=== PATIENT | female | born 1980 | race Caucasian/White ===

== ENCOUNTER 2016-10-20 11:02 | Emergency (ER) | payer OTHER ==
[2016-10-20 11:23] VITALS: BP 97/70; PULSE 88; TEMP 97.7; BMI 27.0
[2016-10-20 11:51] LABS: URINE APPEARANCE CLEAR; URINE BILIRUBIN NEGATIVE (NEGATIVE); URINE COLOR STRAW; URINE GLUCOSE (UA) NEGATIVE (NEGATIVE); URINE KETONE NEGATIVE (NEGATIVE); URINE LEUK ESTERASE NEGATIVE (NEGATIVE); URINE NITRITE NEGATIVE (NEGATIVE); URINE PROTEIN NEGATIVE (NEGATIVE); URINE UROBILINOGEN NEGATIVE E.U./dl (0.2-1.0)
[2016-10-20 11:53] LABS: URINE BLOOD 1+ (NEGATIVE)
[2016-10-20 12:00] LABS: URINE RBC 1 /hpf (0-3)
--- NOTE | 2016-10-20 12:09 | PDOC ---
History of Present Illness - General Chief Complaint: Urinary Problem Stated Complaint: POSSIBLE UTI, BACK PAIN Time Seen by Provider: 10/20/16 11:24 History Source: Patient - History of Present Illness Timing/Duration: reports: getting worse Abdominal Pain Onset Location: reports: flank Past History - Past Medical History Allergies/Adverse Reactions: Allergies Allergy/AdvReac Type Severity Reaction Status Date / Time No Known Allergies Allergy Verified 10/20/16 11:24 Home Medications: Ambulatory Orders Nitrofurantoin Monohyd/M-Cryst [Macrobid -] 100 mg PO BID #14 capsule 10/20/16 Asthma: No Cancer: No Cardiac Disorders: No Diabetes: No HTN: No Seizures: No Thyroid Disease: No - Surgical History Abdominal Surgery: Yes (ECTOPIC) - Immunization History Immunization Up to Date: Yes - Psycho/Social/Smoking Cessation Hx Anxiety: Yes Suicidal Ideation: No Smoking Status: Yes Smoking History: Current some day smoker Years of Tobacco Use: 15 Have you smoked in the past 12 months: Yes Number of Cigarettes Smoked Daily: 1 Cigars Per Day: 0 Information on smoking cessation initiated: No Hx Alcohol Use: No Drug/Substance Use Hx: No Substance Use Type: None Hx Substance Use Treatment: No Review of Systems - Review of Systems Constitutional: No: Chills, Fever ABD/GI: No: Nausea, Vomiting : Yes: Dysuria, Frequency, Flank Pain. No: Discharge, Hematuria *Physical Exam - Vital Signs Last Vital Signs Temp Pulse Resp BP Pulse Ox 97.7 F 88 18 97/70 98 10/20/16 11:05 10/20/16 11:05 10/20/16 11:05 10/20/16 11:05 10/20/16 11:05 - Physical Exam General Appearance: Yes: Appropriately Dressed. No: Apparent Distress HEENT: positive: Normal Voice Neck: positive: Supple Respiratory/Chest: negative: Respiratory Distress Gastrointestinal/Abdominal: positive: Soft. negative: Tender Musculoskeletal: negative: CVA Tenderness Integumentary: positive: Dry, Warm Neurologic: positive: Fully Oriented, Alert, Normal Mood/Affect Medical Decision Making - Medical Decision Making 10/20/16 11:43 35 yo F, no significant medical history, here with dysuria w/ urinary frequency 1 week. At some point, developed left flank pain, and states today while urinating, felt a "pulling pain"to site and now also having some right flank pain as well. No hematuria, vomiting, fever or chills. No vaginal discharge. No h/o renal stone See exam Dysuria w/ flank pain R/o uti, no overt s/o pyelo at this time, possible stone though pt too well appearing and in NAD Exam unremarkable -ua/cx pending 10/20/16 11:45 10/20/16 12:09 10/20/16 12:10 Ua w/ blood only. Will do trial of abx for possible uti. Will hold off on scanning at this time given clinical exam. Pt instructed to return immediately if symptoms worsened because at that time, will need a CT. No old +ucx on file to review past sensitivities *DC/Admit/Observation/Transfer Diagnosis at time of Disposition: Dysuria - Discharge Dispostion Disposition: HOME Condition at time of disposition: Good - Prescriptions Prescriptions: Nitrofurantoin Monohyd/M-Cryst [Macrobid -] 100 mg PO BID #14 capsule - Patient Instructions Printed Discharge Instructions: DI for Dysuria -- Adult Additional Instructions: Please take antibiotics as prescribed and if symptoms such as worsening back pain, vomiting or fever occur, please return immediately for a CAT scan to rule out possibly kidney stone
== END 2016-10-20 12:20 | disposition home or self-care (01) ==
LOC: JERFT 11:02
DX: R30.0 Dysuria (principal); F17.210 Nicotine dependence, cigarettes, uncomplicated
CPT/HCPCS: 81003; 81015; 84703; 87086; 99281-25

== ENCOUNTER 2016-11-08 16:26 | Emergency (ER) | payer OTHER ==
[2016-11-08 16:33] VITALS: BMI 26.4
--- NOTE | 2016-11-08 16:34 | PDOC ---
Rapid Medical Evaluation Chief Complaint: Chest Pain Time Seen by Provider: 11/08/16 16:28 Medical Evaluation: Allergies Allergy/AdvReac Type Severity Reaction Status Date / Time No Known Allergies Allergy Verified 11/08/16 16:28 11/08/16 16:31 I have performed a brief in-person evaluation of this patient. The patient presents with a chief complaint of: lt upper quadrant, lt chest pain x 3 days. aggravating factor worse after exercise. No sob, fever, rash, or nausea Pertinent physical exam findings: vss I have ordered the following: ekg, ua, hcg, cardiac profil, cbc, comp The patient will proceed to the ED for further evaluation.
[2016-11-08 17:15] LABS: BASOPHIL 0.9 % (0-2.0); EOSINOPHIL 0.8 % (0-4.5); MCH 29.2 pg (25.7-33.7); MEAN CELL VOLUME 85.9 fl (80-96); MEAN PLT VOLUME 7.9 fl (7.5-11.1); NEUTROPHILS 65.8 % (42.8-82.8); PLATELET COUNT 198 K/MM3 (134-434); RDW 13.7 % (11.6-15.6); WHITE BLOOD COUNT 6.6 K/mm3 (4.0-10.0)
[2016-11-08 17:40] LABS: ALBUMIN 4.1 g/dl (3.4-5.0); ANION GAP 7 (8-16); BILIRUBIN,TOTAL 0.4 mg/dL (0.2-1.0); CALCIUM 9.1 mg/dL (8.5-10.1); CO2 30 mmol/L (21-32); CREATININE 0.7 mg/dL (0.55-1.02); GLUCOSE,RANDOM 84 mg/dL (74-106); SGOT/AST 23 U/L (15-37); SGPT/ALT 23 U/L (12-78); TOT PROT 7.2 g/dl (6.4-8.2)
[2016-11-08 17:43] LABS: ALK PHOS 64 U/L (45-117); TROPONIN I < 0.02 ng/ml (0.00-0.05)
--- NOTE | 2016-11-08 17:45 | PDOC ---
History of Present Illness - General Chief Complaint: Chest Pain Stated Complaint: BACK PAIN/CHEST PAIN/ABD PAIN Time Seen by Provider: 11/08/16 16:28 History Source: Patient Exam Limitations: No Limitations - History of Present Illness Initial Comments: CHIEF COMPLAINT: 35 y/o afebrile female with no significant PMH c/o abdominal pain and chest pain for the past few days. HISTORY OF PRESENT ILLNESS: the patient admits she always has chest pain and takes a baby aspirin 3 times per week because "she thinks she has angina" although all of her doctors have told her she doesn't. She states for the past few days, especially when she lies down she has squeezing pain in her upper abdomen and middle chest. She also admits to nausea. She denies f/c, v/d, cough, hemoptysis, SOB, back pain, hematuria, dysuria. She is a non smoker, quitting from social smoking a few months ago. She is on non-hormonal [employer] control. She denies recent travel. Vital signs on arrival are within normal limits. REVIEW OF SYSTEMS: GENERAL/CONSTITUTIONAL: No fever/chills. No weakness. No weight change. HEAD, EYES, EARS, NOSE AND THROAT: No change in vision. No ear pain or discharge. No sore throat. CARDIOVASCULAR: +chest pain. No shortness of breath. RESPIRATORY: No cough, wheezing, or hemoptysis. GASTROINTESTINAL: +squeezing abd pain and nausea. No vomiting or diarrhea. GENITOURINARY: No dysuria, frequency, or change in urination. MUSCULOSKELETAL: No joint or muscle swelling or pain. No neck or back pain. SKIN: No rash or easy bruising. NEUROLOGIC: No headache, vertigo, loss of consciousness, or loss of sensation. PHYSICAL EXAM: GENERAL: The patient is awake, alert, and fully oriented, in no acute distress. She is very well appearing, ambulatory, normal weight. HEAD: Normal with no signs of trauma. ENT: Pupils equal, round and reactive to light, extraocular movements intact, sclera anicteric, conjunctiva clear. Neck supple. LUNGS: Clear to auscultation bilaterally. Normal excursion. No respiratory distress or use of accessory muscles. CV: RRR, S1/S2, no MRG. Cap refill < 2 sec. CHEST: No reproducible chest pain with palpation. ABDOMEN: Soft, non-distended, TTP of epigastric region and RUQ. No rebound, guarding or rigidity. Negative Ta's sign. EXTREMITIES: Normal range of motion, no edema. NEUROLOGICAL: Normal speech, normal gait. CN II-XII grossly intact. PSYCH: Normal mood, normal affect. SKIN: Warm, dry, normal turgor, no rashes or lesions noted. Past History - Past Medical History Allergies/Adverse Reactions: Allergies Allergy/AdvReac Type Severity Reaction Status Date / Time No Known Allergies Allergy Verified 11/08/16 16:28 Home Medications: Ambulatory Orders Aspirin [ASA -] 81 mg PO PRN PRN 11/08/16 Asthma: No Cancer: No Cardiac Disorders: No Diabetes: No HTN: No Seizures: No Thyroid Disease: No Other medical history: scoliosis - Surgical History Abdominal Surgery: Yes (ECTOPIC) - Immunization History Immunization Up to Date: Yes - Psycho/Social/Smoking Cessation Hx Anxiety: Yes Suicidal Ideation: No Smoking Status: Yes Smoking History: Former smoker Years of Tobacco Use: 15 Have you smoked in the past 12 months: No Number of Cigarettes Smoked Daily: 1 Cigars Per Day: 0 Information on smoking cessation initiated: No Hx Alcohol Use: No Drug/Substance Use Hx: No Substance Use Type: None Hx Substance Use Treatment: No *Physical Exam - Vital Signs Last Vital Signs Temp Pulse Resp BP Pulse Ox 97.6 F 79 18 113/71 100 11/08/16 16:29 11/08/16 16:29 11/08/16 16:29 11/08/16 16:29 11/08/16 16:29 Heart Score/ECG Review - ECG Intrepretation Comment:: Twelve-lead EKG was performed and reviewed by Dr. Ramirez. There is normal sinus rhythm with a normal rate. The axis is normal. The intervals are normal. There are no ST or T wave abnormalities. Impression: Normal twelve-lead EKG ED Treatment Course - LABORATORY CBC & Chemistry Diagram: 11/08/16 17:02 11/08/16 17:02 - ADDITIONAL ORDERS Additional order review: 11/08/16 17:02 RBC 4.22 MCV 85.9 MCHC 34.0 RDW 13.7 MPV 7.9 Neutrophils % 65.8 D Lymphocytes % 25.4 D Monocytes % 7.1 Eosinophils % 0.8 Basophils % 0.9 Medical Decision Making - Medical Decision Making A/P: 35 y/o female with signs and symptoms of reflux. Plan is as follows: 1. EKG 2. Labs 3. PO zantac 4. PO zofran EKG normal Labs unremarkable The patient states her pain is now gone despite refusing the medication. She does inform me that she has a history of reflux. She also tells me that she has scoliosis and her doctor thinks that may be causing some of the chest pain. I suggested she f/u with both a handle machine operator and a can tender. She states she currently sees both but would like a new GI doctor. Suggested she take zantac daily and return to the ER with any worsening or concerning symptoms. The patient verbalizes understanding of all instructions, has no further questions and is awaiting discharge. *DC/Admit/Observation/Transfer Diagnosis at time of Disposition: Atypical chest pain, Reflux gastritis - Discharge Dispostion Disposition: HOME Condition at time of disposition: Improved - Referrals Referrals: Jadyn Montaño MD [Primary Care Provider] - Carlos Arboleda MD [Staff Physician] - (Call Friday) - Patient Instructions Printed Discharge Instructions: DI for Atypical Chest Pain, GERD Diet, DI for Gastroesophageal Reflux Disease (GERD) Additional Instructions: Discharge instructions: -Take daily zantac -Follow up with your Brand Designer and Dr. Arboleda as soon as possible for follow up -Return to the ER with any worsening or concerning symptoms
[2016-11-08] MEDS ORDERED: ONDANSETRON *ODT* 4 MG TABLET SL ONE (17:48)
[2016-11-08] MEDS ORDERED: RANITIDINE HCL 150 MG TABLET (FP) PO ONE (17:48)
--- NOTE | 2016-11-08 17:59 | PDOC ---
[id number] 100 11/08/16 16:29 11/08/16 16:29 11/08/16 16:29 11/08/16 16:29 11/08/16 16:29 ED Treatment Course - LABORATORY CBC & Chemistry Diagram: 11/08/16 17:02 11/08/16 17:02 - ADDITIONAL ORDERS Additional order review: Laboratory Results 11/08/16 17:02 Sodium 141 Potassium 3.9 Chloride 104 Carbon Dioxide 30 Anion Gap 7 L BUN 14 Creatinine 0.7 Creat Clearance w eGFR > 60 Random Glucose 84 Calcium 9.1 Total Bilirubin 0.4 D AST 23 D ALT 23 D Alkaline Phosphatase 64 Creatine Kinase 260 H D Troponin I < 0.02 Total Protein 7.2 Albumin 4.1 11/08/16 17:02 RBC 4.22 MCV 85.9 MCHC 34.0 RDW 13.7 MPV 7.9 Neutrophils % 65.8 D Lymphocytes % 25.4 D Monocytes % 7.1 Eosinophils % 0.8 Basophils % 0.9 Medical Decision Making - Medical Decision Making 11/08/16 17:59 Pt seen by the Advanced Practice Provider under my direct supervision Ancillary studies reviewed I agree with plan as outlined by the Advanced Practice Provider JOVANNA Giles *DC/Admit/Observation/Transfer Diagnosis at time of Disposition: Atypical chest pain, Reflux gastritis - Discharge Dispostion Disposition: HOME Condition at time of disposition: Improved - Referrals Referrals: Carlos Arboleda MD [Staff Physician] - (Call Friday) Jadyn Montaño MD [Primary Care Provider] - - Patient Instructions Printed Discharge Instructions: DI for Gastroesophageal Reflux Disease (GERD), DI for Atypical Chest Pain, GERD Diet Additional Instructions: Discharge instructions: -Take daily zantac -Follow up with your Manager Talent and Dr. Arboleda as soon as possible for follow up -Return to the ER with any worsening or concerning symptoms
[2016-11-08 18:35] LABS: URINE APPEARANCE CLEAR; URINE BILIRUBIN NEGATIVE (NEGATIVE); URINE BLOOD NEGATIVE (NEGATIVE); URINE COLOR YELLOW; URINE GLUCOSE (UA) NEGATIVE (NEGATIVE); URINE KETONE NEGATIVE (NEGATIVE); URINE LEUK ESTERASE NEGATIVE (NEGATIVE); URINE NITRITE NEGATIVE (NEGATIVE); URINE PROTEIN NEGATIVE (NEGATIVE); URINE UROBILINOGEN NEGATIVE E.U./dl (0.2-1.0)
[2016-11-08] MEDS ORDERED: ONDANSETRON *ODT* 4 MG TABLET ONE (18:41)
[2016-11-08] MEDS ORDERED: RANITIDINE HCL 150 MG TABLET (FP) ONE (18:41)
[2016-11-08 19:00] VITALS: BP 116/73; PULSE 72; TEMP 98
--- NOTE | 2016-11-11 14:57 | EKG ---
Test Reason : Blood Pressure : / mmHG Vent. Rate : 068 BPM Atrial Rate : 068 BPM P-R Int : 132 ms QRS Dur : 088 ms QT Int : 382 ms P-R-T Axes : 035 023 042 degrees QTc Int : 406 ms NORMAL SINUS RHYTHM NORMAL ECG WHEN COMPARED WITH ECG OF 23-MAR-2016 18:10, NO SIGNIFICANT CHANGE WAS FOUND Confirmed by LUCAS MCCLURE MD ([id number]) on 11/11/2016 2:57:24 PM Referred By: Confirmed By:LUCAS MCCLURE MD
== END 2016-11-08 19:00 | disposition home or self-care (01) ==
LOC: JER 16:26
DX: K21.9 Gastro-esophageal reflux disease without esophagitis (principal)
CPT/HCPCS: 36415; 80053; 81003; 82550; 82553; 84484; 84703; 85025; 93005; 93010; 99283-25

== ENCOUNTER 2017-01-02 15:00 | Emergency (ER) | payer OTHER ==
[2017-01-02 15:06] VITALS: BP 119/71; PULSE 71; TEMP 98; BMI 26.4
[2017-01-02 16:28] LABS: URINE APPEARANCE CLEAR; URINE BILIRUBIN NEGATIVE (NEGATIVE); URINE COLOR STRAW; URINE GLUCOSE (UA) NEGATIVE (NEGATIVE); URINE KETONE NEGATIVE (NEGATIVE); URINE LEUK ESTERASE NEGATIVE (NEGATIVE); URINE NITRITE NEGATIVE (NEGATIVE); URINE PROTEIN NEGATIVE (NEGATIVE); URINE UROBILINOGEN NEGATIVE E.U./dl (0.2-1.0)
--- NOTE | 2017-01-02 16:29 | PDOC ---
History of Present Illness - General Chief Complaint: Head/Neck problem Stated Complaint: SENT BY PCP Time Seen by Provider: 01/02/17 16:11 Past History - Past Medical History Allergies/Adverse Reactions: Allergies Allergy/AdvReac Type Severity Reaction Status Date / Time No Known Allergies Allergy Verified 01/02/17 15:05 Home Medications: Ambulatory Orders Aspirin [ASA -] 81 mg PO PRN PRN 11/08/16 Asthma: No Cancer: No Cardiac Disorders: No Diabetes: No HTN: No Seizures: No Thyroid Disease: No Other medical history: Charry malformation - Surgical History Abdominal Surgery: Yes (ECTOPIC) - Immunization History Immunization Up to Date: Yes - Psycho/Social/Smoking Cessation Hx Anxiety: Yes Suicidal Ideation: No Smoking Status: Yes Smoking History: Current some day smoker Years of Tobacco Use: 15 Have you smoked in the past 12 months: No Number of Cigarettes Smoked Daily: 5 Cigars Per Day: 0 Information on smoking cessation initiated: Yes 'Breaking Loose' booklet given: 01/02/17 Hx Alcohol Use: Yes (social) Drug/Substance Use Hx: No Substance Use Type: None Hx Substance Use Treatment: No *Physical Exam - Vital Signs Last Vital Signs Temp Pulse Resp BP Pulse Ox 98 F 71 18 119/71 99 01/02/17 15:03 01/02/17 15:03 01/02/17 15:03 01/02/17 15:03 01/02/17 15:03 *DC/Admit/Observation/Transfer - Attestations Physician Attestion: 01/02/17 16:29 I, Dr. Claude Ramirez, attest that this document has been prepared under my direction and personally reviewed by me in its entirety. I further attest, that it accurately reflects all work, treatment, procedures and medical decision -making performed by me.
[2017-01-02 16:40] LABS: URINE BLOOD 1+ (NEGATIVE)
--- NOTE | 2017-01-02 17:53 | PDOC ---
History of Present Illness <Claude Ramirez - Last Filed: 01/02/17 17:53> - General History Source: Patient, Family Exam Limitations: No Limitations - History of Present Illness Initial Comments: 01/02/17 18:06 The patient is a 36 year old female, accompanied by mother, with a significant past medical history of migraines, who presents to the emergency department today for further evaluation of right eye droopiness and back pain since this morning. The patient states that her back pain is located in her upper left back radiating through her left arm and feels like she is being shocked and notes that her eye droopiness had improved before presenting to the emergency department. She denies any exacerbating or alleviating factors. She states that she follows with a neurologist (Dr. Ma) but has not seen him in a while after they had a disagreement in her plan of care. PCP: Dr. Pryor [phone] NEURO: Dr. aM [phone] PAST MEDICAL HISTORY: Migraines PAST SURGICAL HISTORY: No significant history reported FAMILY HISTORY: No pertinent history reported <Humble Nails - Last Filed: 01/02/17 18:07> - General Chief Complaint: Head/Neck problem Stated Complaint: SENT BY PCP Time Seen by Provider: 01/02/17 16:11 Past History - Past Medical History Asthma: No Cancer: No Cardiac Disorders: No Diabetes: No HTN: No Seizures: No Thyroid Disease: No Other medical history: Charry malformation - Surgical History Abdominal Surgery: Yes (ECTOPIC) - Immunization History Immunization Up to Date: Yes - Psycho/Social/Smoking Cessation Hx Anxiety: Yes Suicidal Ideation: No Smoking Status: Yes Smoking History: Current some day smoker Years of Tobacco Use: 15 Have you smoked in the past 12 months: No Number of Cigarettes Smoked Daily: 5 Cigars Per Day: 0 Information on smoking cessation initiated: Yes 'Breaking Loose' booklet given: 01/02/17 Hx Alcohol Use: Yes (social) Drug/Substance Use Hx: No Substance Use Type: None Hx Substance Use Treatment: No <Claude Ramirez - Last Filed: 01/02/17 17:53> <Humble Nails - Last Filed: 01/02/17 18:07> - Past Medical History Allergies/Adverse Reactions: Allergies Allergy/AdvReac Type Severity Reaction Status Date / Time No Known Allergies Allergy Verified 01/02/17 15:05 Home Medications: Ambulatory Orders Aspirin [ASA -] 81 mg PO PRN PRN 11/08/16 Review of Systems - Review of Systems Able to Perform ROS?: Yes Comments:: 01/02/17 18:06 GENERAL/CONSTITUTIONAL: No fever or chills. No weakness. HEAD, EYES, EARS, NOSE AND THROAT: (+) Right eye droopiness. No change in vision. No ear pain or discharge. No sore throat. CARDIOVASCULAR: No chest pain or shortness of breath. RESPIRATORY: No cough, wheezing, or hemoptysis. GASTROINTESTINAL: No nausea, vomiting, diarrhea or constipation. GENITOURINARY: No dysuria, frequency, or change in urination. MUSCULOSKELETAL: (+) Left upper back pain. Left arm pain. SKIN: No rash NEUROLOGIC: No headache, vertigo, loss of consciousness, or change in strength/ sensation. ENDOCRINE: No increased thirst. No abnormal weight change. HEMATOLOGIC/LYMPHATIC: No anemia, easy bleeding, or history of blood clots. ALLERGIC/IMMUNOLOGIC: No hives or skin allergy. <Humble Nails - Last Filed: 01/02/17 18:07> *Physical Exam - Vital Signs Last Vital Signs Temp Pulse Resp BP Pulse Ox 98 F 71 18 119/71 99 01/02/17 15:03 01/02/17 15:03 01/02/17 15:03 01/02/17 15:03 01/02/17 15:03 <Claude Ramirez - Last Filed: 01/02/17 17:53> - Vital Signs Last Vital Signs Temp Pulse Resp BP Pulse Ox 98 F 71 18 119/71 99 01/02/17 15:03 01/02/17 15:03 01/02/17 15:03 01/02/17 15:03 01/02/17 15:03 - Physical Exam Comments: 01/02/17 18:06 GENERAL: Awake, alert, and fully oriented, in no acute distress HEAD: No signs of trauma EYES: PERRLA, EOMI, sclera anicteric, conjunctiva clear ENT: Auricles normal inspection, hearing grossly normal, nares patent, oropharynx clear without exudates. Moist mucosa NECK: Normal ROM, supple, no lymphadenopathy, JVD, or masses LUNGS: Breath sounds equal, clear to auscultation bilaterally. No wheezes, and no crackles HEART: Regular rate and rhythm, normal S1 and S2, no murmurs, rubs or gallops ABDOMEN: Soft, nontender, normoactive bowel sounds. No guarding, no rebound. No masses EXTREMITIES: Normal range of motion, no edema. No clubbing or cyanosis. No cords, erythema, or tenderness NEUROLOGICAL: Cranial nerves II through XII grossly intact. Normal speech, normal gait SKIN: Warm, Dry, normal turgor, no rashes or lesions noted. <Humble Nails - Last Filed: 01/02/17 18:07> ED Treatment Course - ADDITIONAL ORDERS Additional order review: Laboratory Results 01/02/17 16:06 Urine Color Straw Urine Appearance Clear Urine pH 7.0 D Urine Protein Negative Urine Glucose (UA) Negative Urine Ketones Negative Urine Blood 1+ H Urine Nitrite Negative Urine Bilirubin Negative Urine Urobilinogen Negative Ur Leukocyte Esterase Negative Urine HCG, Qual Negative <Claude Ramirez - Last Filed: 01/02/17 17:53> - ADDITIONAL ORDERS Additional order review: Laboratory Results 01/02/17 16:06 Urine Color Straw Urine Appearance Clear Urine pH 7.0 D Urine Protein Negative Urine Glucose (UA) Negative Urine Ketones Negative Urine Blood 1+ H Urine Nitrite Negative Urine Bilirubin Negative Urine Urobilinogen Negative Ur Leukocyte Esterase Negative Urine HCG, Qual Negative <Humble Nails - Last Filed: 01/02/17 18:07> Medical Decision Making - Medical Decision Making 01/02/17 18:07 Patient states that she feels fine and that she wants to go home because her needs help caring for their 4 year old child. <Humble Nails - Last Filed: 01/02/17 18:07> *DC/Admit/Observation/Transfer - Discharge Dispostion Admit: No - Attestations Physician Attestion: 01/02/17 17:53 I, Dr. Claude Ramirez, attest that this document has been prepared under my direction and personally reviewed by me in its entirety. I further attest, that it accurately reflects all work, treatment, procedures and medical decision -making performed by me. <Claude Ramirez - Last Filed: 01/02/17 17:53> - Attestations Scribe Attestion: 01/02/17 18:07 Documentation prepared by [employer], acting as medical records director for Dr. James DO. <Humble Nails - Last Filed: 01/02/17 18:07> Diagnosis at time of Disposition: Paresthesia, Facial weakness - Referrals Referrals: Jadyn Montaño MD [Primary Care Provider] - Maxx Ma MD [Staff Physician] - - Patient Instructions Printed Discharge Instructions: DI for Muscle Weakness Additional Instructions: Monika- Please see your neurologist as soon as possible. Return to us if any problems. Best- Dr. Claude Ramirez - Post Discharge Activity
[2017-01-02 18:11] LABS: URINE RBC <1 /hpf (0-3); URINE WBC <1 /hpf (3-5)
== END 2017-01-02 18:04 | disposition home or self-care (01) ==
LOC: JER 15:00
DX: R29.810 Facial weakness (principal); R20.8 Other disturbances of skin sensation; G43.909 Migraine, unspecified, not intractable, without status migrainosus; G93.5 Compression of brain
CPT/HCPCS: 70450-TC; 81003; 81015; 84703; 99284-25

== ENCOUNTER 2018-06-03 17:01 | Emergency (ER) | payer OTHER ==
[2018-06-03 17:14] VITALS: BMI 29.2
[2018-06-03] MEDS ORDERED: ONDANSETRON *ODT* 4 MG TABLET SL ONE (17:18)
[2018-06-03] MEDS ORDERED: ONDANSETRON *ODT* 4 MG TABLET ONE (17:38)
[2018-06-03 18:00] LABS: HEMATOCRIT 37.5 % (32.4-45.2); HEMOGLOBIN 12.4 GM/dL (10.7-15.3); MCH 28.8 pg (25.7-33.7); MCHC 33.1 g/dl (32.0-36.0); MEAN CELL VOLUME 87.1 fl (80-96); PLATELET COUNT 229 K/MM3 (134-434); RDW 13.5 % (11.6-15.6); WHITE BLOOD COUNT 6.6 K/mm3 (4.0-10.0)
[2018-06-03 18:47] LABS: ALK PHOS 65 U/L (45-117); AMYLASE 68 U/L (25-115); ANION GAP 6 MMOL/L (8-16); BILIRUBIN,TOTAL 0.4 mg/dL (0.2-1); BLOOD UREA NITROGEN 11 mg/dL (7-18); CHLORIDE 105 mmol/L (98-107); CO2 28 mmol/L (21-32); CREATININE 0.7 mg/dL (0.55-1.3); GLUCOSE,RANDOM 87 mg/dL (74-106); LIPASE 177 U/L (73-393); POTASSIUM 3.8 mmol/L (3.5-5.1); SGOT/AST 42 U/L (15-37); SGPT/ALT 56 U/L (13-61); SODIUM 138 mmol/L (136-145); TOT PROT 7.4 g/dl (6.4-8.2)
[2018-06-03] MEDS ORDERED: ASPIRIN 81 MG CHEWABLE TABLETS PO ONE (21:25)
--- NOTE | 2018-06-03 21:26 | PDOC ---
History of Present Illness - General Chief Complaint: Chest Pain Stated Complaint: CHEST PAIN Time Seen by Provider: 06/03/18 21:02 History Source: Patient - History of Present Illness Initial Comments: 06/03/18 21:26 37 year old female with history of anxiety, GERD c/o midsternal chest pain radiating to back after working out this morning. patient reports that she occasionally gets chest pain usually resolves on its own. reports nausea denies vomiting , diarrhea Past History - Past Medical History Allergies/Adverse Reactions: Allergies Allergy/AdvReac Type Severity Reaction Status Date / Time No Known Allergies Allergy Verified 06/03/18 17:13 Home Medications: Ambulatory Orders Aspirin [ASA -] 81 mg PO PRN PRN 11/08/16 Asthma: No Cancer: No Cardiac Disorders: No COPD: No CHF: No DVT: No Diabetes: No HTN: No Seizures: No Thyroid Disease: No Other medical history: scoliosis - Surgical History Abdominal Surgery: Yes (ECTOPIC) - Immunization History Immunization Up to Date: Yes - Suicide/Smoking/Psychosocial Hx Smoking Status: Yes Smoking History: Never smoked Years of Tobacco Use: 15 Have you smoked in the past 12 months: No Number of Cigarettes Smoked Daily: 5 Cigars Per Day: 0 Information on smoking cessation initiated: No 'Breaking Loose' booklet given: 06/03/18 Hx Alcohol Use: No Drug/Substance Use Hx: No Substance Use Type: None Hx Substance Use Treatment: No Cardiac Specific PMH - Complaint Specific PMHX Angina: No Cardiac Arrhythmia: No *Physical Exam - Vital Signs Last Vital Signs Temp Pulse Resp BP Pulse Ox 98.3 F 79 17 110/80 100 06/03/18 17:11 06/03/18 17:11 06/03/18 17:11 06/03/18 17:11 06/03/18 17:11 ED Treatment Course - LABORATORY CBC & Chemistry Diagram: 06/03/18 17:43 06/03/18 17:45 - ADDITIONAL ORDERS Additional order review: Laboratory Results 06/03/18 06/03/18 06/03/18 17:45 17:43 17:30 Sodium 138 Potassium 3.8 Chloride 105 Carbon Dioxide 28 Anion Gap 6 L BUN 11 Creatinine 0.7 Creat Clearance w eGFR > 60 Random Glucose 87 Calcium 9.0 Total Bilirubin 0.4 AST 42 H ALT 56 Alkaline Phosphatase 65 Troponin I < 0.02 Total Protein 7.4 Albumin 4.0 Total Amylase 68 Lipase 177 Urine HCG, Qual Negative 06/03/18 17:43 RBC 4.30 MCV 87.1 MCHC 33.1 RDW 13.5 MPV 8.0 - RADIOLOGY Radiology Studies Ordered: Category Date Time Status CHEST PA & LAT [RAD] Stat Radiology 06/03/18 21:13 Taken - Medications Given in the ED: ED Medications Discontinued Medications Generic Name Dose Route Start Last Admin Trade Name Freq PRN Reason Stop Dose Admin Ondansetron HCl 4 mg 06/03/18 17:18 06/03/18 17:46 Zofran Odt - SL 06/03/18 17:19 4 mg ONCE ONE Administration *DC/Admit/Observation/Transfer Diagnosis at time of Disposition: Chest pain at rest - Discharge Dispostion Disposition: HOME - Referrals Referrals: Melinda Saha MD [Primary Care Provider] - - Patient Instructions Printed Discharge Instructions: DI for Chest Pain Additional Instructions: please call [facility]: [phone] drink plenty of fluids follow up with your doctor as soon as possible. - Post Discharge Activity Forms/Work/School Notes: Back to Work
[2018-06-03 21:57] VITALS: TEMP 98
[2018-06-03] MEDS ORDERED: ASPIRIN 81 MG CHEWABLE TABLETS ONE (22:06)
[2018-06-03 22:10] VITALS: BP 112/68; PULSE 76
--- NOTE | 2018-06-04 22:04 | EKG ---
Test Reason : Blood Pressure : / mmHG Vent. Rate : 073 BPM Atrial Rate : 073 BPM P-R Int : 132 ms QRS Dur : 096 ms QT Int : 362 ms P-R-T Axes : 028 014 027 degrees QTc Int : 398 ms NORMAL SINUS RHYTHM NONSPECIFIC T WAVE ABNORMALITY WHEN COMPARED WITH ECG OF 08-NOV-2016 16:59, NO SIGNIFICANT CHANGE WAS FOUND Confirmed by BJORN VILCHIS MD ([id number]) on 06/04/2018 10:03:32 PM Referred By: Confirmed By:BJORN VILCHIS MD
== END 2018-06-03 22:12 | disposition home or self-care (01) ==
LOC: JER 17:01
DX: R07.9 Chest pain, unspecified (principal); R07.89 Other chest pain; Z87.891 Personal history of nicotine dependence; M41.9 Scoliosis, unspecified
CPT/HCPCS: 36415; 71046-TC-FY; 80053; 82150; 83690; 84484; 84703; 85027; 93005; 93010; 99283-25; Q0162

== ENCOUNTER 2018-08-19 10:59 | Emergency (ER) | payer OTHER ==
[2018-08-19 11:16] VITALS: BP 110/65; PULSE 82; TEMP 98; BMI 29.2
[2018-08-19 12:03] LABS: HCG,QUALITATIVE URINE Negative
[2018-08-19 12:12] LABS: URINE APPEARANCE CLEAR; URINE BILIRUBIN NEGATIVE (<2.0 mg/dL); URINE COLOR AMBER; URINE GLUCOSE (UA) NEGATIVE (NEGATIVE); URINE KETONE NEGATIVE (NEGATIVE); URINE LEUK ESTERASE NEGATIVE (NEGATIVE); URINE NITRITE POSITIVE (NEGATIVE); URINE PROTEIN NEGATIVE (NEGATIVE); URINE UROBILINOGEN 4.0 E.U/dl mg/dL (0.2-1.0)
[2018-08-19] MEDS ORDERED: CEPHALEXIN MONOHYDRATE 500 MG CAPSULE (UD) PO ONE (12:19)
--- NOTE | 2018-08-19 12:23 | PDOC ---
History of Present Illness - General Chief Complaint: Urinary Problem Stated Complaint: URINARY PROBLEM Time Seen by Provider: 08/19/18 11:56 History Source: Patient Exam Limitations: No Limitations - History of Present Illness Travel History: No Initial Comments: 08/19/18 12:19 c/o urinary urgency and pressure started yesterday no fever no back pain or chills. LMP one month ago no vaginal discharge. Timing/Duration: reports: constant Quality: reports: fullness Abdominal Pain Onset Location: reports: suprapubic Past History - Past Medical History Allergies/Adverse Reactions: Allergies Allergy/AdvReac Type Severity Reaction Status Date / Time No Known Allergies Allergy Verified 08/19/18 11:16 Home Medications: Ambulatory Orders Cephalexin [Keflex] 500 mg PO BID #5 capsule 08/19/18 Asthma: No Cancer: No Cardiac Disorders: No COPD: No CHF: No DVT: No Diabetes: No HTN: No Seizures: No Thyroid Disease: No - Surgical History Abdominal Surgery: Yes (ECTOPIC) - Immunization History Immunization Up to Date: Yes - Suicide/Smoking/Psychosocial Hx Smoking Status: Yes Smoking History: Never smoked Years of Tobacco Use: 15 Have you smoked in the past 12 months: No Number of Cigarettes Smoked Daily: 5 Cigars Per Day: 0 Information on smoking cessation initiated: No 'Breaking Loose' booklet given: 06/03/18 Hx Alcohol Use: No Drug/Substance Use Hx: No Substance Use Type: None Hx Substance Use Treatment: No *Physical Exam - Vital Signs Last Vital Signs Temp Pulse Resp BP Pulse Ox 98 F 82 18 110/65 100 08/19/18 11:13 08/19/18 11:13 08/19/18 11:13 08/19/18 11:13 08/19/18 11:13 - Physical Exam General Appearance: Yes: Nourished, Appropriately Dressed HEENT: positive: EOMI, SHANNON Neck: positive: Supple Respiratory/Chest: positive: Lungs Clear, Normal Breath Sounds Cardiovascular: positive: Regular Rhythm, Regular Rate Gastrointestinal/Abdominal: positive: Normal Bowel Sounds, Soft Musculoskeletal: positive: Normal Inspection. negative: CVA Tenderness, CVA Tenderness (R), CVA Tenderness (L) Extremity: positive: Normal Capillary Refill, Normal Inspection, Normal Range of Motion Integumentary: positive: Normal Color, Dry, Warm Neurologic: positive: Fully Oriented, Alert, Normal Mood/Affect, Normal Response , Motor Strength 5/5 Moderate Sedation - Procedure Monitoring Vital Signs: Procedure Monitoring Vital Signs Temperature 98 F 08/19/18 11:13 Pulse Rate 82 08/19/18 11:13 Respiratory Rate 18 08/19/18 11:13 Blood Pressure 110/65 08/19/18 11:13 O2 Sat by Pulse Oximetry (%) 100 08/19/18 11:13 ED Treatment Course - ADDITIONAL ORDERS Additional order review: Laboratory Results 08/19/18 11:53 Urine Color Shanelle Urine Appearance Clear Urine pH 6.0 Ur Specific [place] 1.005 L Urine Protein Negative Urine Glucose (UA) Negative Urine Ketones Negative Urine Blood Negative Urine Nitrite Positive Urine Bilirubin Negative Urine Urobilinogen 4.0 e.u/dl H Ur Leukocyte Esterase Negative Urine HCG, Qual Negative Medical Decision Making - Medical Decision Making 08/19/18 12:20 cc: urinary urgency frequency and pain for 2 days no fever no chills no back or abd pain will check for UTI *DC/Admit/Observation/Transfer Diagnosis at time of Disposition: Urinary tract infection Qualifiers: Urinary tract infection type: acute cystitis Hematuria presence: with hematuria Qualified Code(s): N30.01 - Acute cystitis with hematuria - Discharge Dispostion Disposition: HOME Condition at time of disposition: Good - Prescriptions Prescriptions: Cephalexin [Keflex] 500 mg PO BID #5 capsule - Referrals Referrals: Melinda Saha MD [Primary Care Provider] - - Patient Instructions Printed Discharge Instructions: DI for Urinary Tract Infection (UTI) Additional Instructions: take the medication as prescribed drink at least 2 liters of water a day always urinate before and after sexual intercourse always urinate when you feel the urge, try not to hold it in follow with your director of volunteer services tomorrow as scheduled - Post Discharge Activity
[2018-08-19] MEDS ORDERED: CEPHALEXIN MONOHYDRATE 500 MG CAPSULE (UD) ONE (12:24)
[2018-08-19 12:44] LABS: EPI CELLS RARE /HPF (FEW)
== END 2018-08-19 12:31 | disposition home or self-care (01) ==
LOC: JERFT 10:59
DX: N30.01 Acute cystitis with hematuria (principal)
CPT/HCPCS: 81003; 81015; 84703; 87086; 87186; 99281-25

== ENCOUNTER 2018-12-21 10:29 | Emergency (ER) | payer OTHER ==
[2018-12-21 10:44] VITALS: BP 99/61; PULSE 77; TEMP 98; BMI 29.2
[2018-12-21 11:10] LABS: PH,URINE 6.5 (5.0-8.0); URINE APPEARANCE CLEAR; URINE BILIRUBIN NEGATIVE (NEGATIVE); URINE COLOR YELLOW; URINE GLUCOSE (UA) NEGATIVE (NEGATIVE); URINE KETONE NEGATIVE (NEGATIVE); URINE LEUK ESTERASE NEGATIVE (NEGATIVE); URINE NITRITE NEGATIVE (NEGATIVE); URINE PROTEIN NEGATIVE (NEGATIVE); URINE UROBILINOGEN 0.2 mg/dL (0.2-1.0)
[2018-12-21 11:13] LABS: HCG,QUALITATIVE URINE Negative
--- NOTE | 2018-12-21 11:36 | PDOC ---
History of Present Illness - General Chief Complaint: Urinary Problem Stated Complaint: UTI Time Seen by Provider: 12/21/18 11:14 History Source: Patient Exam Limitations: No Limitations - History of Present Illness Travel History: No Initial Comments: 12/21/18 11:31 Complaints of urinary frequency and low back pain. had concerns about having a urinary tract infection where she had same symptoms in the past. Also admits to drinking parsley water recipe for weight loss in diuresis but is uncertain as if this has any relationship to her urinary frequency. However last week slipped and fell on wet tile falling onto her back in the same area where she feels some of the discomfort. was sore that day but resolved. however's from scoliosis but has not followed up with any orthopedist in many years for any reevaluation for treatment. 12/21/18 11:35 Timing/Duration: reports: constant Quality: reports: mild, moderate Abdominal Pain Onset Location: reports: flank Pain Radiation: reports: back (across) Activities at Onset: reports: none Past History - Travel Traveled outside of the country in the last 30 days: No Close contact w/someone who was outside of country & ill: No - Past Medical History Allergies/Adverse Reactions: Allergies Allergy/AdvReac Type Severity Reaction Status Date / Time No Known Allergies Allergy Verified 12/21/18 10:52 Home Medications: Ambulatory Orders NK [No Known Home Medication] 12/21/18 Asthma: No Cancer: No Cardiac Disorders: No COPD: No CHF: No DVT: No Diabetes: No HTN: No Seizures: No Thyroid Disease: No - Surgical History Abdominal Surgery: Yes (ECTOPIC) - Immunization History Immunization Up to Date: Yes - Suicide/Smoking/Psychosocial Hx Smoking Status: Yes Smoking History: Never smoked Years of Tobacco Use: 15 Have you smoked in the past 12 months: No Number of Cigarettes Smoked Daily: 5 Cigars Per Day: 0 'Breaking Loose' booklet given: 06/03/18 Hx Alcohol Use: No Drug/Substance Use Hx: No Substance Use Type: None Hx Substance Use Treatment: No Review of Systems - Review of Systems Able to Perform ROS?: Yes Is the patient limited [place] proficient: Yes Constitutional: Yes: Symptoms Reported, See HPI, Malaise. No: Chills, Fever HEENTM: Yes: See HPI. No: Symptoms Reported Respiratory: Yes: See HPI. No: Symptoms reported, Cough, Wheezing : Yes: Symptoms Reported, See HPI, Frequency, Flank Pain, Urgency. No: Pain Musculoskeletal: Yes: Symptoms Reported, See HPI, Back Pain, Muscle Pain Integumentary: Yes: See HPI. No: Symptoms Reported, Bruising All Other Systems: Reviewed and Negative *Physical Exam - Vital Signs Last Vital Signs Temp Pulse Resp BP Pulse Ox 98.0 F 77 16 99/61 100 12/21/18 10:41 12/21/18 10:41 12/21/18 10:41 12/21/18 10:41 12/21/18 10:41 - Physical Exam General Appearance: Yes: Nourished, Appropriately Dressed, Apparent Distress, Mild Distress HEENT: positive: SHANNON, Normal ENT Inspection, TMs Normal, Pharynx Normal Neck: positive: Supple. negative: Tender Respiratory/Chest: positive: Lungs Clear Gastrointestinal/Abdominal: positive: Soft. negative: Tender, Guarding, Rebound Musculoskeletal: positive: Other Extremity: positive: Normal Capillary Refill, Normal Inspection, Normal Range of Motion (patient with significant curvature of the lumbar spine starting from T12 and extending down to L4-5 without crepitus or step-offs, is able to bend and touch toes without difficulty. Able to stand back without reproduce tenderness or spasm to lumbar or low back musculature.) Integumentary: positive: Normal Color, Dry, Warm. negative: Swelling, Ecchymosis, Bruising Neurologic: positive: inspector paper products II-XII NML intact, Fully Oriented, Alert, Normal Mood/ Affect, Normal Response, Motor Strength 5/5 ED Treatment Course - ADDITIONAL ORDERS Additional order review: Laboratory Results 12/21/18 11:00 Urine Color Yellow Urine Appearance Clear Urine pH 6.5 Ur Specific [place] 1.005 L Urine Protein Negative Urine Glucose (UA) Negative Urine Ketones Negative Urine Blood Negative Urine Nitrite Negative Urine Bilirubin Negative Urine Urobilinogen 0.2 Ur Leukocyte Esterase Negative Urine HCG, Qual Negative Progress Note - Progress Note Progress Note: Probable contusion and mild muscle strain from fall last week. Urinalysis does not reveal any urinary tract infection or pathology. Culture has been sent and patient understands if identifies infection will be notified and antibiotic therapy can be started at that point. Otherwise will use anti-inflammatories rest and homeopathic measures to help resolve low back pain. *DC/Admit/Observation/Transfer Diagnosis at time of Disposition: Back sprain or strain - Discharge Dispostion Disposition: HOME Condition at time of disposition: Stable Decision to Admit order: No - Referrals Referrals: Melinda Saha MD [Primary Care Provider] - - Patient Instructions Printed Discharge Instructions: DI for Back Strain or Sprain Additional Instructions: Rest, ice to area on and off for 15 minutes 4-6 times a day Avoid heavy lifting or exercise until pain and swelling is resolved or until further directed Keep area highly elevated to reduce swelling Use splints/James wrap as directed Followup with orthopedist in one to 2 days if not improving, if significantly improved may wait one week for followup with orthopedist May use ibuprofen every 6 hours as needed for pain Will receive phone call in 2 days if ear and culture proves to show infection an antibiotic will be prescribed at that time. - Post Discharge Activity
== END 2018-12-21 11:43 | disposition home or self-care (01) ==
LOC: JERFT 10:29
DX: S39.012A Strain of muscle, fascia and tendon of lower back, initial encounter (principal); W01.0XXA Fall on same level from slipping, tripping and stumbling without subsequent striking against object, initial encounter; Y93.89 Activity, other specified; Y92.89 Other specified places as the place of occurrence of the external cause; Y99.8 Other external cause status
CPT/HCPCS: 81003; 84703; 87086; 99281-25

== ENCOUNTER 2019-02-28 08:13 | Emergency (ER) | payer OTHER ==
[2019-02-28 08:20] VITALS: BP 101/68; PULSE 82; TEMP 97.7; BMI 29.5
--- NOTE | 2019-02-28 08:48 | PDOC ---
History of Present Illness - General Chief Complaint: Pain, Acute Stated Complaint: RT LOWER BACK PAIN Time Seen by Provider: 02/28/19 08:29 History Source: Patient Exam Limitations: No Limitations Past History - Past Medical History Allergies/Adverse Reactions: Allergies Allergy/AdvReac Type Severity Reaction Status Date / Time No Known Allergies Allergy Verified 02/28/19 08:20 Home Medications: Ambulatory Orders NK [No Known Home Medication] 12/21/18 Asthma: No Cancer: No Cardiac Disorders: No COPD: No CHF: No DVT: No Diabetes: No HTN: No Seizures: No Thyroid Disease: No - Surgical History Abdominal Surgery: Yes (ECTOPIC) - Immunization History Immunization Up to Date: Yes - Suicide/Smoking/Psychosocial Hx Smoking Status: Yes Smoking History: Never smoked Years of Tobacco Use: 15 Have you smoked in the past 12 months: No Number of Cigarettes Smoked Daily: 5 Cigars Per Day: 0 'Breaking Loose' booklet given: 06/03/18 Hx Alcohol Use: No Drug/Substance Use Hx: No Substance Use Type: None Hx Substance Use Treatment: No *Physical Exam - Vital Signs Last Vital Signs Temp Pulse Resp BP Pulse Ox 97.7 F 82 18 101/68 100 02/28/19 08:17 02/28/19 08:17 02/28/19 08:17 02/28/19 08:17 02/28/19 08:17 - Physical Exam General Appearance: No: Apparent Distress Respiratory/Chest: positive: Lungs Clear, Normal Breath Sounds. negative: Respiratory Distress Cardiovascular: positive: Regular Rhythm, Regular Rate, S1, S2. negative: Murmur Gastrointestinal/Abdominal: positive: Normal Bowel Sounds, Soft. negative: Tender, Distended, Guarding, Rebound Musculoskeletal: negative: CVA Tenderness, Vertebral Tenderness Integumentary: positive: Normal Color Neurologic: positive: Alert, Normal Mood/Affect Medical Decision Making - Medical Decision Making 38 y/o F hx of scoliosis presents with R lower back x 3 weeks, initially resolved after drinking Parsley water and cranberry juice, but states it came back 3 days after drinking alcohol. Has not tried anything for pain since then. Also mentions her urine was somewhat cloudy 3 weeks ago but also resolved after home remedies. States she was searching stuff up on internet and was concerned she may have kidney stone or infection. Denies fever, sob, cp, abd pain, n/v/d, dysuria, hematuria, increased frequency or urgency, unusual vaginal discharge. Will r/o possible UTI; less suspicious for pyelo given afebrile with no CVA tenderness; also less suspicious for kidney stones Plan: UA, UCx, UCG 02/28/19 08:44 UA negative Patient reassured Stable for dc 02/28/19 09:07 *DC/Admit/Observation/Transfer Diagnosis at time of Disposition: Lower back pain Qualifiers: Chronicity: acute Back pain laterality: right Sciatica presence: without sciatica Qualified Code(s): M54.5 - Low back pain - Discharge Dispostion Disposition: HOME Condition at time of disposition: Stable Decision to Admit order: No - Referrals Referrals: Melinda Saha MD [Primary Care Provider] - 2 Days - Patient Instructions Printed Discharge Instructions: DI for Low Back Pain Additional Instructions: Thank you for choosing [facility]. It was a pleasure taking care of you. Your urine test was negative Can take Motrin 600 mg every 6 hours as needed for pain Can also try warm compresses Follow-up with your doctor in 2-3 days Return to the Emergency Department if your symptoms worsen or persist, you have fever, shortness of breath, chest pain, severe abdominal pain, vomiting, weakness of extremities (arms and/or legs), changes in walking or other concerning symptoms. - Post Discharge Activity
[2019-02-28 08:59] LABS: URINE APPEARANCE CLEAR; URINE BILIRUBIN NEGATIVE (NEGATIVE); URINE COLOR YELLOW; URINE GLUCOSE (UA) NEGATIVE (NEGATIVE); URINE KETONE NEGATIVE (NEGATIVE); URINE LEUK ESTERASE NEGATIVE (NEGATIVE); URINE NITRITE NEGATIVE (NEGATIVE); URINE PROTEIN NEGATIVE (NEGATIVE); URINE UROBILINOGEN 0.2 mg/dL (0.2-1.0)
[2019-02-28 09:13] LABS: HCG,QUALITATIVE URINE Negative
== END 2019-02-28 09:18 | disposition home or self-care (01) ==
LOC: JERFT 08:13 → JER 08:13 → JERFT 09:18
DX: M54.5 Low back pain (principal)
CPT/HCPCS: 81003; 84703; 87086; 99281-25

== ENCOUNTER 2020-04-14 12:30 | Emergency (ER) | payer OTHER ==
[2020-04-14 12:37] VITALS: BP 108/72; PULSE 92; TEMP 98; BMI 31.2
--- NOTE | 2020-04-14 12:56 | PDOC ---
History of Present Illness - General Chief Complaint: Chest Pain Stated Complaint: CHEST PAIN Time Seen by Provider: 04/14/20 12:53 History Source: Patient - History of Present Illness Presenting Symptoms: Chest Pain, Dizziness, Short of Breath Past History - Medical History Allergies/Adverse Reactions: Allergies Allergy/AdvReac Type Severity Reaction Status Date / Time ketorolac [From Toradol] AdvReac Verified 04/14/20 12:33 Home Medications: Ambulatory Orders NK [No Known Home Medication] 12/21/18 Asthma: No Cancer: No Cardiac Disorders: No COPD: No CHF: No DVT: No Diabetes: No HTN: No Seizures: No Thyroid Disease: No - Surgical History Abdominal Surgery: Yes (ECTOPIC) - Reproductive History Is Patient Now?: No - Immunization History Immunization Up to Date: Yes - Psycho-Social/Smoking History Smoking Status: Yes Smoking History: Current some day smoker Years of Tobacco Use: 15 Have you smoked in the past 12 months: No Number of Cigarettes Smoked Daily: 5 Cigars Per Day: 0 Information on smoking cessation initiated: No 'Breaking Loose' booklet given: 06/03/18 - Substance Abuse Hx (Audit-C & DAST Scrn) How often the patient has a drink containing alcohol: Monthly or less Number of drinks the patient has on a typical day: 1 or 2 How often the patient has six or more drinks on one occasion: Never Score: In Men: 4 or > Positive; In Women: 3 or > Positive: 1 Screen Result (Pos requires Nsg. Audit-10AR): Negative In the last yr the pt used illegal drug/Rx for NonMed reason: No Score: Yes response is considered Positive: 0 Screen Result (Positive result requires Nsg. DAST-10): Negative Cardiac Specific PMH - Complaint Specific PMHX Angina: No Cardiac Arrhythmia: No Review of Systems - Review of Systems Constitutional: No: Chills, Fever Respiratory: Yes: Shortness of Breath. No: Cough Cardiac (ROS): Yes: Chest Pain. No: Syncope ABD/GI: No: Diarrhea, Nausea, Vomiting, Abdominal cramping : No: Dysuria Neurological: Yes: Dizziness. No: Headache, Numbness, Tingling, Weakness Psychiatric: Yes: Stressors *Physical Exam - Vital Signs Last Vital Signs Temp Pulse Resp BP Pulse Ox 98.0 F 92 H 18 108/72 100 04/14/20 12:33 08/14/20 12:33 04/14/20 12:33 04/14/20 12:33 04/14/20 12:33 - Physical Exam General Appearance: Yes: Appropriately Dressed. No: Apparent Distress HEENT: positive: Normal Voice Neck: positive: Supple Respiratory/Chest: positive: Lungs Clear, Normal Breath Sounds. negative: Respiratory Distress Cardiovascular: positive: Regular Rate, S1, S2 Gastrointestinal/Abdominal: positive: Normal Bowel Sounds, Soft. negative: Tender, Distended, Guarding, Rebound Musculoskeletal: negative: CVA Tenderness Integumentary: positive: Dry, Warm Neurologic: positive: Fully Oriented, Alert, Normal Mood/Affect ED Treatment Course - LABORATORY CBC & Chemistry Diagram: 04/14/20 13:00 04/14/20 13:00 - ADDITIONAL ORDERS Additional order review: Laboratory Results 04/14/20 04/14/20 13:50 13:00 Sodium 139 Potassium 4.4 Chloride 107 Carbon Dioxide 27 Anion Gap 5 L BUN 12.4 Creatinine 0.8 Est GFR (CKD-EPI)AfAm 107.64 Est GFR (CKD-EPI)NonAf 92.87 Random Glucose 88 Calcium 9.0 Total Bilirubin 0.8 AST 15 ALT 17 Alkaline Phosphatase 72 Total Protein 7.8 Albumin 4.1 TSH 0.77 Urine Color Yellow Urine Appearance Clear Urine pH 5.5 D Ur Specific [place] 1.020 Urine Protein Negative Urine Glucose (UA) Negative Urine Ketones Negative Urine Blood 2+ H Urine Nitrite Negative Urine Bilirubin Negative Urine Urobilinogen 0.2 Ur Leukocyte Esterase Negative Urine WBC (Auto) 4 Urine Casts (Auto) 1 U Epithel Cells (Auto) 10 Urine Bacteria (Auto) 60 Urine HCG, Qual Negative 04/14/20 13:00 RBC 4.65 MCV 87.9 MCHC 32.7 RDW 13.7 MPV 8.1 Neutrophils % 58.6 Lymphocytes % 32.5 D Monocytes % 7.1 Eosinophils % 0.8 Basophils % 1.0 Medical Decision Making - Medical Decision Making 04/14/20 12:53 39 yo F, h/o anxiety, here w/ constellation of symptoms including CP, SOB, dizziness, neck/back pain and feeling hot, all of which started 3 days ago, inte rmittent and since improved. No cough, palpitations, abd pain, change in BM, dysuria, n/v/f/c. Pt endorses that she is going "through a lot" right not, including of sister from covid several months ago see exam CP Since improved No RF for ACS, PERCs out, no infectious sxs, ?anxiety component Well [place] and stable here w/ clear chest/lungs EKG done at triage and normal Will check basic labs Anticipate dc w/ PMD f/u 04/14/20 14:36 Labs wnl. Pt remained well edwin and stable in ED. Will dc to f/u with PMD Discharge - Discharge Information Problems reviewed: Yes Clinical Impression/Diagnosis: Chest pain Qualifiers: Chest pain type: unspecified Qualified Code(s): R07.9 - Chest pain, unspecified Condition: Good Disposition: HOME - Follow up/Referral - Patient Discharge Instructions Additional Instructions: The cause of your symptoms are unclear as your exam, ekg and labs were all normal Please follow up with your PMD for further assessment - Post Discharge Activity
[2020-04-14 13:42] LABS: EOS % 0.8 % (0-4.5); HEMATOCRIT 40.9 % (32.4-45.2); HEMOGLOBIN 13.4 GM/dL (10.7-15.3); LYMPH % 32.5 % (8-40); MCH 28.7 pg (25.7-33.7); MCHC 32.7 g/dl (32.0-36.0); MEAN CELL VOLUME 87.9 fl (80-96); MEAN PLT VOLUME 8.1 fl (7.5-11.1); MONO % 7.1 % (3.8-10.2); NEUT % 58.6 % (42.8-82.8); PLATELET COUNT 226 K/MM3 (134-434); RBC 4.65 M/mm3 (3.60-5.2); RDW 13.7 % (11.6-15.6); WHITE BLOOD COUNT 4.9 K/mm3 (4.0-10.0)
[2020-04-14 14:14] LABS: ALBUMIN 4.1 g/dl (3.4-5.0); BILIRUBIN,TOTAL 0.8 mg/dL (0.2-1); BLOOD UREA NITROGEN 12.4 mg/dL (7-18); CREATININE 0.8 mg/dL (0.55-1.3); POTASSIUM 4.4 mmol/L (3.5-5.1); TOT PROT 7.8 g/dl (6.4-8.2)
[2020-04-14 14:24] LABS: EPI CELLS 10 /uL (0-25.1); HCG,QUALITATIVE URINE Negative; HYALINE CASTS 1 /uL (0-3.1); PH,URINE 5.5 (5.0-8.0); URINE APPEARANCE CLEAR; URINE BACTERIA 60 /uL (0-1359); URINE BILIRUBIN NEGATIVE (NEGATIVE); URINE COLOR YELLOW; URINE GLUCOSE (UA) NEGATIVE (NEGATIVE); URINE KETONE NEGATIVE (NEGATIVE); URINE LEUK ESTERASE NEGATIVE (NEGATIVE); URINE NITRITE NEGATIVE (NEGATIVE); URINE PROTEIN NEGATIVE (NEGATIVE); URINE UROBILINOGEN 0.2 mg/dL (0.2-1.0); URINE WBC 4 /uL (0-25.8)
[2020-04-14 14:54] LABS: URINE RBC 15 /uL (0-23.9)
[2020-04-14 14:55] LABS: YEAST NON SEEN (NEGATIVE)
--- NOTE | 2020-04-14 15:43 | EKG ---
Test Reason : Blood Pressure : / mmHG Vent. Rate : 072 BPM Atrial Rate : 072 BPM P-R Int : 130 ms QRS Dur : 092 ms QT Int : 376 ms P-R-T Axes : 055 014 032 degrees QTc Int : 411 ms NORMAL SINUS RHYTHM NORMAL ECG WHEN COMPARED WITH ECG OF 03-JUN-2018 17:03, T WAVE INVERSION NO LONGER EVIDENT IN ANTERIOR LEADS Confirmed by CARLO DOWNEY MD ([id number]) on 04/14/2020 3:42:47 PM Referred By: Confirmed By:CARLO DOWNEY MD
== END 2020-04-14 15:09 | disposition home or self-care (01) ==
LOC: JER 12:30
DX: R07.9 Chest pain, unspecified (principal)
CPT/HCPCS: 36415; 80053; 81003; 84443; 84703; 85025; 93005; 93010; 99284-25

== ENCOUNTER → 2020-11-22 | Day surgery (SDC) | payer OTHER | END | disposition home or self-care (01) | LOC: JMAMMO-SUR 11:42 | PROVIDERS: ATTEND Family Medicine | PROC: 0H9T3ZX Drainage of Right Breast, Percutaneous Approach, Diagnostic (ICD-10-PCS; principal; 2020-11-22) | DX: C50.811 Malignant neoplasm of overlapping sites of right female breast (principal); Z17.0 Estrogen receptor positive status [ER+] | CPT/HCPCS: 19083; 19084; 77065-TC; 87899; A4648 ==

== ENCOUNTER 2022-04-05 22:20 | Emergency (ER) | payer OTHER ==
[2022-04-05 22:31] VITALS: RESP 18; BMI 30.8
[2022-04-06] MEDS ORDERED: IBUPROFEN 600 MG TABLET (FP) PO ONE (00:25)
[2022-04-06 00:35] LABS: BASO % 0.8 % (0-2.0); EOS % 1.6 % (0-4.5); HEMATOCRIT 34.2 % (32.4-45.2); HEMOGLOBIN 11.6 GM/dL (10.7-15.3); LYMPH % 22.2 % (8-40); MCH 28.6 pg (25.7-33.7); MEAN CELL VOLUME 84.1 fl (80-96); MEAN PLT VOLUME 7.1 fl (7.5-11.1); MONO % 8.1 % (3.8-10.2); NEUT % 67.3 % (42.8-82.8); PLATELET COUNT 205 10^3/uL (134-434); RBC 4.07 M/mm3 (3.60-5.2); RDW 14.9 % (11.6-15.6); WHITE BLOOD COUNT 3.8 K/mm3 (4.0-10.0)
[2022-04-06 00:56] LABS: CALCIUM 8.8 mg/dL (8.5-10.1); INR 0.98 (0.83-1.09); PROTHROMBIN TIME (PATIENT) 11.3 SEC (9.7-13.0)
[2022-04-06 00:57] LABS: ALBUMIN 3.5 g/dl (3.4-5.0); BLOOD UREA NITROGEN 17.6 mg/dL (7-18); MAGNESIUM 1.9 mg/dL (1.8-2.4)
[2022-04-06 00:59] LABS: ACTIVATED PTT 29.1 SECONDS (25.2-36.5)
[2022-04-06 01:00] LABS: CREATININE 0.9 mg/dL (0.55-1.3)
[2022-04-06 01:01] LABS: BILIRUBIN,TOTAL 0.4 mg/dL (0.2-1); TOT PROT 6.9 g/dl (6.4-8.2)
[2022-04-06] MEDS ORDERED: IBUPROFEN 400 MG TABLET (FP) PO ONE (02:03)
[2022-04-06] MEDS ORDERED: FAMOTIDINE 20 MG TABLET PO ONE (02:14)
[2022-04-06] MEDS ORDERED: MAG HYDROX/AL HYDROX/SIMETH -MYLANTA- ORAL SUSPENSION PO ONE (02:14)
[2022-04-06 02:33] VITALS: BP 138/75; PULSE 85; TEMP 97.7
[2022-04-06] MEDS ORDERED: FAMOTIDINE 20 MG TABLET ONE (02:55)
[2022-04-06] MEDS ORDERED: MAG HYDROX/AL HYDROX/SIMETH 30 ML UNIT-DOSE CUP ONE (02:55)
[2022-04-06] MEDS ORDERED: METHOCARBAMOL 500 MG TABLET PO ONE (04:02)
== END 2022-04-06 05:08 | disposition home or self-care (01) ==
LOC: JER 22:20
DX: R07.9 Chest pain, unspecified (principal)
CPT/HCPCS: 36415; 71046-TC-FY; 80053; 83735; 84484; 85025; 85379; 85610; 85730; 93005; 93010; 99284-25

== ENCOUNTER 2023-05-10 15:25 | Emergency (ER) | payer OTHER ==
[2023-05-10 15:38] VITALS: BP 104/69; PULSE 88; RESP 18; TEMP 97.7; BMI 31.2
[2023-05-10] MEDS ORDERED: SODIUM CHLORIDE 0.9% 500 ML INFUS.BAG IV ONE (16:31)
[2023-05-10 17:02] LABS: BASO % 0.5 % (0-2.0); EOS % 0.4 % (0-4.5); HEMOGLOBIN 12.4 GM/dL (10.7-15.3); LYMPH % 12.7 % (8-40); MCH 27.5 pg (25.7-33.7); MCHC 33.6 g/dl (32.0-36.0); MEAN CELL VOLUME 82.1 fl (80-96); MONO % 7.3 % (3.8-10.2); NEUT % 79.1 % (42.8-82.8); PLATELET COUNT 221 10^3/uL (134-434); RDW 14.6 % (11.6-15.6); WHITE BLOOD COUNT 7.1 K/mm3 (4.0-10.0)
[2023-05-10 17:23] LABS: URINE APPEARANCE CLEAR; URINE BILIRUBIN NEGATIVE (NEGATIVE); URINE COLOR YELLOW; URINE GLUCOSE (UA) NEGATIVE (NEGATIVE); URINE KETONE NEGATIVE (NEGATIVE); URINE LEUK ESTERASE NEGATIVE (NEGATIVE); URINE NITRITE NEGATIVE (NEGATIVE); URINE PROTEIN NEGATIVE (NEGATIVE); URINE UROBILINOGEN 0.2 mg/dL (0.2-1.0)
[2023-05-10 17:30] LABS: POTASSIUM 4.2 mmol/L (3.5-5.1)
[2023-05-10 17:32] LABS: CALCIUM 9.9 mg/dL (8.5-10.1)
[2023-05-10 17:33] LABS: ALBUMIN 4.1 g/dl (3.4-5.0); BLOOD UREA NITROGEN 16.5 mg/dL (7-18); MAGNESIUM 1.8 mg/dL (1.8-2.4)
[2023-05-10 17:36] LABS: CREATININE 0.7 mg/dL (0.55-1.3)
[2023-05-10 17:37] LABS: TOT PROT 7.8 g/dl (6.4-8.2)
[2023-05-10 17:38] LABS: BILIRUBIN,TOTAL 0.4 mg/dL (0.2-1)
== END 2023-05-10 20:35 | disposition home or self-care (01) ==
LOC: JER 15:25
DX: R25.2 Cramp and spasm (principal); R11.0 Nausea; R10.13 Epigastric pain
CPT/HCPCS: 36415; 80053; 81003; 83690; 83735; 84484; 85025; 87086; 93005; 93010; 99284-25